=== PATIENT | male | born 1960 | race Caucasian/White ===

== ENCOUNTER 2024-09-05 16:29 | Emergency (ER) | payer MEDICARE, OTHER, SELFPAY ==
[2024-09-05 17:00] VITALS: BP 138/64
--- NOTE | 2024-09-05 17:50 | ED.SKININJ ---
HPI-Injury
General
Chief Complaint: Skin Surface Trauma
Source: patient, ambulance crew and correction records
Exam Limitations: none
Time Seen by Provider: 09/05/24 16:38
Nursing documentation reviewed up to this point in time: agreed with
History of Present Illness-Injury
Initial Injury comments:
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 He states he was leaning forward to get out of his wheelchair to transfer to his bed when he lost his balance and fell striking
his left upper arm on the wheelchair causing a skin injury. He denies hitting his head, he does take Plavix.
Patient denies headache or pain anywhere
Past History
Past History
ED Past Medical History: CAD, CVA (With left hemiparesis), HTN, Psychiatric (Alcoholism, depression) and Other (Hepatitis C)
ED Past Surgical History: Orthopedic
Social History
Tobacco: Smoker
Alcohol: None
Living: with roommate (Residential care)
Review of Systems
Review of Systems
Allergies reviewed?: Yes
All Other Systems: ROS reviewed and negative except as documented in HPI and ROS
Constitutional: Denies fatigue
Respiratory: Reports trouble breathing
ABD/GI: Denies abdominal pain or nausea
Musculoskeletal: Reports other (Denies any pain in his extremities); Denies edema, neck pain or back pain
Skin: Reports other (Skin tear left upper arm, small abrasion left knee from a fall earlier this morning dressing intact)
Neurological: Reports other (Left-sided hemiparesis from previous stroke); Denies dizzy or headache
Phy Exam
Physical Exam
Physical Exam:
GENERAL: No acute distress. A&Ox3.
CONSTITUTIONAL: Afebrile.
EYES: clear, conjunctivae normal
ENMT: moist mucus membranes, Pharynx nl
RESPIRATORY: Regular respirations, nonlabored, lungs clear.
CARDIOVASCULAR: Regular rate and rhythm, no murmurs, no rubs.
GI: Soft, nontender, normal BS
MUSCULOSKELETAL: Moves right extremities with ease. Well perfused.
SKIN: Warm, dry, pink. L upper arm with 1 cm skin tear.
PSYCH: Normal mood and affect. Well kept, interactive and appropriate
NEUROLOGIC: Awake, alert and oriented. L hemiparesis.
Course
Orders/Labs/Results
Orders:
Orders
09/05/24 17:06
CT Head W/o Iv Contrast Urgent
Comment:
Reason For Exam: fall NH request, on Plavix
09/05/24 17:11
Prednisolone [Prelone] 15 mg PO NOW STA
09/05/24 17:51
Tetanus/Diphth/Acelpertussis [Adacel] 0.5 ml IM .ONCE ONE
Vital Signs
Initial and Last Documented VS:
Initial Vital Signs
Temp
97.5 F
09/05/24 16:34
Last Documented Vital Signs
Temp Pulse Resp BP Pulse Ox
97.5 F 61 17 144/89 95
09/05/24 16:34 09/05/24 19:00 09/05/24 19:00 09/05/24 19:00 09/05/24 18:01
MDM/Problems Addressed
Differential Diagnosis Includes:
concussion, brain bleed
MDM/Problems Addressed:
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 He states he was leaning forward to get out of his wheelchair to transfer to his bed when he lost his balance and fell
striking his left upper arm on the wheelchair causing a skin injury. Denies feeling dizzy, lightheaded, headache prior to fall. He denies hitting his head, he does take Plavix.
Patient denies headache or pain anywhere
63 yo male L hemiparesis, mechanical fall, no significant injury
Head CT w nothing acute.
Deep clean abrasion/skin tear left upper arm cleansed, ATB ointment and dressing applied.
Pt stable for DC back to NH
*Critical Care Note
Total Time (30-74mins, 75-104mins- exclusive of procedures): Not Applicable
ED Attending Note
-
Portions of this chart may have been created with voice recognition software.� Occasional wrong word or��sound alike� substitutions may have occurred due to the inherent limitations of voice recognition software.
Discharge Plan
Departure
Patient Disposition: Fpc/SNF
Date of Disposition: 09/05/24
Time of Disposition: 19:32
Condition: Good
Discharge Problem:
Fall from slip, trip, or stumble, Abrasion of left upper arm
Instructions: Wound Care (DC)
Prescriptions:
No Action
lisinopril 20 MG tablet
20 mg PO DAILY Qty: 30 0RF
clopidogrel 75 MG tablet
75 mg PO DAILY Qty: 30 0RF
Referrals:
Herrera Washington DO [Family Provider, Internal Medicine]
Activity Restrictions/Additional Instructions:
Cleanse left upper arm wound daily, antibiotic ointment and large band aid or gauze dressing
Head CT was neg
Interventions
Interventions:
*Risk Screen - Suicide Last Done: 09/05/24 16:34
*General Assessment Last Done: 09/05/24 16:34
*Neglect/Abuse Screening Last Done: 09/05/24 16:34
*ED- Fall Risk Assessment Last Done: 09/05/24 16:34
*Nursing Disposition Last Done: 09/05/24 20:42
ED-Skin Assessment Last Done: 09/05/24 16:45
Discharge Date and Time
Discharge Date/Time: 09/05/24 20:45
Print Language: CITIZEN OF [place]
[2024-09-05 18:00] VITALS: BP 142/69
[2024-09-05 19:00] VITALS: BP 144/89
[2024-09-05] MEDS: ADACEL 0.5 ML IM (19:12)
== END 2024-09-05 20:45 ==
LOC: EMR 16:29
PROVIDERS: EMERGENCY PHYSICIAN Emergency Medicine; FAMILY PHYSICIAN Internal Medicine Geriatric Medicine
DX: S41.112A Laceration without foreign body of left upper arm, initial encounter (principal); S40.812A Abrasion of left upper arm, initial encounter; W01.0XXA Fall on same level from slipping, tripping and stumbling without subsequent striking against object, initial encounter; Z79.02 Long term (current) use of antithrombotics/antiplatelets; I69.354 Hemiplegia and hemiparesis following cerebral infarction affecting left non-dominant side; I25.10 Atherosclerotic heart disease of native coronary artery without angina pectoris; I10 Essential (primary) hypertension; F17.200 Nicotine dependence, unspecified, uncomplicated
CPT/HCPCS: 99284; 90471; 70450; 90715

== ENCOUNTER 2024-12-05 20:38 | Emergency (ER) | payer MEDICARE, OTHER, SELFPAY ==
[2024-12-05 20:42] VITALS: BP 153/116
[2024-12-05 20:43] VITALS: BP 153/116
[2024-12-05 20:49] VITALS: BP 153/116
[2024-12-05 20:53] VITALS: BMI 27.1
[2024-12-05 21:01] VITALS: BP 154/66
[2024-12-05 21:02] VITALS: BP 154/66
[2024-12-05 22:00] VITALS: BP 150/77
--- NOTE | 2024-12-06 22:41 | ED.MUSCINJ ---
HPI-Injury
General
Chief Complaint: Musculo-Skeletal Complaint
Source: patient and intermediate
Exam Limitations: none
Time Seen by Provider: 12/05/24 21:19
Nursing documentation reviewed up to this point in time: agreed with
History of Present Illness-Injury
Is this injury a work related problem?: No
Is pt an associate of [facility]/[place]?: No
Initial Injury comments:
[facility] with complaint of left shoulder, elbow, hip pain. States he fell out of his chair. He does not recall when. Hx CVA with left sided weakness. Brought to ED via EMS for john.
Past History
Past History
ED Past Medical History: CAD, CVA (With left hemiparesis), HTN, Psychiatric (Alcoholism, depression) and Other (Hepatitis C)
ED Past Surgical History: Orthopedic
Social History
Tobacco: Smoker
Alcohol: None
Living: with roommate (Residential care)
Review of Systems
Review of Systems
Allergies reviewed?: Yes
All Other Systems: ROS reviewed and negative except as documented in HPI and ROS
Constitutional: Reports no symptoms
EENT: Reports no symptoms
Respiratory: Reports no symptoms
Cardiac: Reports no symptoms
ABD/GI: Reports no symptoms
: Reports no symptoms
Musculoskeletal: Reports joint pain (Pain to left shoulder, elbow, hip)
Skin: Reports no symptoms
Neurological: Reports no symptoms
Psychiatric: Reports no symptoms
Musculoskeletal Injury Exam
Musculoskeletal Injury Exam
Left Shoulder:
Pain with Movement?: Moderate
Tender to palpation?: Moderate
Soft tissue swelling?: None
External deformity and angulation?: None
Joint effusion?: None
Contusion?: Moderate
Hematoma-local bleeding into tissue?: None
Strain- Sprain- Tear (Connective tissue injury)?: Moderate
Crepitus with movement?: No
Joint instability?: No
Malalignment/deformity?: No
Range of motion: Limited (Hx CVA with left sided deficits)
Distal skin color and temperature: normal-warm & good color
Capillary Refill: normal
Normal distal neurovascular exam?: Yes
Left Elbow:
Pain with Movement?: Moderate
Tender to palpation?: Moderate
Soft tissue swelling?: Mild
External deformity and angulation?: None
Joint effusion?: None
Contusion?: Moderate
Hematoma-local bleeding into tissue?: None
Strain- Sprain- Tear (Connective tissue injury)?: Moderate
Crepitus with movement?: No
Joint instability?: No
Malalignment/deformity?: No
Range of motion: Limited
Distal skin color and temperature: normal-warm & good color
Capillary Refill: normal
Normal distal neurovascular exam?: Yes
Left Hip:
Pain with Movement?: Moderate
Tender to palpation?: Moderate
Soft tissue swelling?: None
External deformity and angulation?: None
Joint effusion?: None
Hematoma-local bleeding into tissue?: None
Crepitus with movement?: No
Joint instability?: No
Malalignment/deformity?: No
Range of motion: Limited
Distal skin color and temperature: normal-warm & good color
Capillary Refill: normal
Normal distal neurovascular exam?: Yes
Phy Exam
General Physical Exam
General Presentation: no apparent distress
General age: appears stated age
General Skin: warm
General Habitus: normal
General Mental: alert
Cardiovascular Exam
Cardiovascular Exam: regular rate/rhythm
Pulmonary Exam
Pulmonary Exam: lungs clear and no respiratory distress
Gastrointestinal Exam
Gastrointestinal Exam: normal bowel sounds and non tender
Neurological Exam
Neurological Exam: alert and oriented x3
Musculoskeletal Exam
Musculoskeletal Exam: neuro vasc intact
Skin Exam
Skin Exam: normal color, warm/dry and no rash
Psychiatric Exam
Psychiatric Exam: normal mood/affect
Injury Course
Orders/Labs/Results
Orders:
Orders
12/05/24 22:05
Elbow, 3 view, Left [CR Elbow - Left Min 3 Views ] Urgent
Comment:
Reason For Exam: trauma
Shoulder, Left, Trauma CR [CR Shoulder, Trauma - Left] Urgent
Comment:
Reason For Exam: fall
12/05/24 22:06
Hip, Left 2-3 Views [CR Hip - LT w/wo Pel 2-3 Vw*] Urgent
Comment:
Reason For Exam: fall
Include a pelvis x-ray?: Yes
12/06/24 00:07
Long Arm Left-Treatment ONCE
*Pulse Oximetry
SaO2: 96
Oxygen Mode of Delivery: Room air
Patient hypoxic: no
*Critical Care Note
Total Time (30-74mins, 75-104mins- exclusive of procedures): Not Applicable
Update Note
Update Note:
Patient to ED [facility] complaint of left shoulder, elbow and hip pain after falling out of chair. He does not recall when he fell. [facility] reports [facility]. Xray reports reviewed. COncern for possible distal humerus fx. He was placed in a splint
and sling and will followup with ortho. No fx to shoulder or hip. He is discharged [facility]
ED Attending Note
-
Portions of this chart may have been created with voice recognition software.� Occasional wrong word or��sound alike� substitutions may have occurred due to the inherent limitations of voice recognition software.
Discharge Plan
Departure
Patient Disposition: Home (Routine Discharge)
Date of Disposition: 12/06/24
Time of Disposition: 00:07
Patient with high blood pressure during this ER visit?: No
Condition: Good
Covid-19: Not Applicable
Discharge Problem:
Elbow fracture, left
Instructions: Splint Care, Elbow Fracture, Adult ED
Prescriptions:
No Action
lisinopril 20 MG tablet
20 mg PO DAILY Qty: 30 0RF
clopidogrel 75 MG tablet
75 mg PO DAILY Qty: 30 0RF
Referrals:
Arnoldo Norris MD [Active, Orthopedics]
Referral Note: Call on Sunday to schedule your appoinment.
Herrera Washington DO [Family Provider, Internal Medicine]
Activity Restrictions/Additional Instructions:
The radiologist reports a small area on the distal humerus that may be broken. A splint has been applied for comfort. Follow up with orthopedics next week for further eval of this possible elbow fracture.
Interventions
Interventions:
*Risk Screen - Suicide Last Done: 12/05/24 20:49
*General Assessment Last Done: 12/05/24 20:49
*Neglect/Abuse Screening Last Done: 12/05/24 20:49
*ED- Fall Risk Assessment Last Done: 12/05/24 20:54
*ED COVID-19 Vaccine History Last Done: 12/05/24 20:54
*Nursing Disposition Last Done: 12/06/24 03:39
ED-Musculoskeletal Assessment Last Done: 12/05/24 20:54
Discharge Date and Time
Discharge Date/Time: 12/06/24 03:42
Print Language: [place]
== END 2024-12-06 03:42 | disposition home or self-care (01) ==
LOC: EMR 20:38
PROVIDERS: EMERGENCY PHYSICIAN Emergency Medicine; FAMILY PHYSICIAN Internal Medicine Geriatric Medicine
DX: S42.442A Displaced fracture (avulsion) of medial epicondyle of left humerus, initial encounter for closed fracture (principal); S42.462A Displaced fracture of medial condyle of left humerus, initial encounter for closed fracture; W07.XXXA Fall from chair, initial encounter; I25.10 Atherosclerotic heart disease of native coronary artery without angina pectoris; I10 Essential (primary) hypertension; I69.354 Hemiplegia and hemiparesis following cerebral infarction affecting left non-dominant side; F10.20 Alcohol dependence, uncomplicated; F17.200 Nicotine dependence, unspecified, uncomplicated; Z86.19 Personal history of other infectious and parasitic diseases
CPT/HCPCS: 99283; 29105; 73030; 73080; 73502